=== PATIENT | male | born 1950 | race Caucasian/White ===

== ENCOUNTER 2019-01-08 14:18 | Emergency (ER) | payer BC ==
[~2019-01-08] VITALS: Ht 188 cm; Wt 89.8 kg
[~2019-01-08 14:18] MED LIST: CITALOPRAM HYDR20 M1 PO; CLARITIN10 MG PO; FLO4 PO; LEVAQUIN750 MG PO; LISINOPRIL10 MG PO; LYRICA100 M1 PO; METFORMIN500 M1 GT; OXYC PO; PRAVASTATIN SOD20 M1 PO; TRAZODONE50 M1 PO
[2019-01-08 16:53] VITALS: BP 157/89
== END 2019-01-08 16:53 | disposition home or self-care (01) ==
LOC: ED 14:18
DX: S13.4XXA Sprain of ligaments of cervical spine, initial encounter (principal); M25.512 Pain in left shoulder; M79.605 Pain in left leg; I10 Essential (primary) hypertension; E11.40 Type 2 diabetes mellitus with diabetic neuropathy, unspecified; Z85.51 Personal history of malignant neoplasm of bladder; V43.92XA Unspecified car occupant injured in collision with other type car in traffic accident, initial encounter; Y93.89 Activity, other specified; Y92.488 Other paved roadways as the place of occurrence of the external cause; Y99.8 Other external cause status
CPT/HCPCS: 82962

== ENCOUNTER 2020-03-26 20:37 | Emergency (ER) | payer BC ==
[~2020-03-26] VITALS: Ht 188 cm; Wt 86.2 kg
[2020-03-26 20:46] VITALS: Ht 188 cm; Wt 86.2 kg
[2020-03-26 21:30] LABS: BASOPHIL % 0.3 % (0-2); PLATELET COUNT 198 x10^3mcL (130-400); RED CELL DISTRIBUTION WIDTH 12.7 % (11.5-14.5)
[2020-03-26 21:39] LABS: CALCIUM 9.6 mg/dL (8.5-10.1); CARBON DIOXIDE 31.4 mmol/L (21-32); CHLORIDE SERUM 101 mmol/L (98-107); CREATININE SERUM 1.7 mg/dL (0.7-1.3); GFR1 43 mL/min; GLUCOSE SERUM 149 mg/dL (74-106); POTASSIUM SERUM 4.4 mmol/L (3.5-5.1); SODIUM SERUM 137 mmol/L (136-145)
[2020-03-26 21:44] LABS: ALBUMIN 3.7 g/dL (3.4-5.0); ALKALINE PHOSPHATASE 65 U/L (46-116); ALT/SGPT 38 U/L (16-63); AST/SGOT 26 U/L (15-37); BILIRUBIN TOTAL 0.4 mg/dL (0.20-1.00); TOTAL PROTEIN, SERUM 6.7 g/dL (6.4-8.2)
[2020-03-26 22:24] VITALS: BP 125/80
== END 2020-03-26 22:24 | disposition home or self-care (01) ==
LOC: ED 20:37
PROVIDERS: Student in an Organized Health Care Education/Training Program
DX: T40.601A Poisoning by unspecified narcotics, accidental (unintentional), initial encounter (principal); R41.82 Altered mental status, unspecified; I10 Essential (primary) hypertension; E11.40 Type 2 diabetes mellitus with diabetic neuropathy, unspecified; Z98.890 Other specified postprocedural states; Z85.51 Personal history of malignant neoplasm of bladder; Y92.89 Other specified places as the place of occurrence of the external cause
CPT/HCPCS: G0480